=== PATIENT | female | born 1960 | race Caucasian/White ===

== ENCOUNTER → 2017-08-08 | Outpatient (CLI) | payer BC ==
[~2017-08-08] MED LIST: ALBU90OI61 INH; Aspirin EC81 MG; BENHYD1012 PO; Biotin Plus-Ca1 EACH; DOXY100 PO; Hair, Skin & N1 EACH; LISI5 PO; Levaquin750 MG PO; MONT10T; Mobic15 MG; Prednisone20 MG PO; Zofran Odt4 MG SL
[2017-08-11 01:40] LABS: HPV Genotype 16 Not Detected (NOTDET); HPV Genotype 18 Not Detected (NOTDET)
[2017-08-27 08:45] LABS: HPV High Risk Other Not Detected (NOTDET)
== END | disposition home or self-care (01) ==
LOC: LAB 19:19
PROVIDERS: Internal Medicine
DX: Z01.419 Encounter for gynecological examination (general) (routine) without abnormal findings (principal)
CPT/HCPCS: 87624; G0145

== ENCOUNTER → 2022-04-19 | Outpatient (CLI) | payer BC | END | disposition home or self-care (01) | LOC: LAB SHORT 09:30 → LAB 09:30 | DX: B35.1 Tinea unguium (principal) | CPT/HCPCS: 87102 ==